=== PATIENT | male | born 1960 | race Caucasian/White ===

== ENCOUNTER 2017-11-19 15:48 | Emergency (ER) | payer OTHER, SELFPAY ==
[2017-11-19 15:49] VITALS: BP 181/90; PULSE 85; RESP 14; TEMP 36.7; O2SAT 98; BMI 25.8
--- NOTE | 2017-11-19 15:58 | XR_ITS ---
XR hand RT min 3V HISTORY: Post traumatic pain ITS.REASON: fall ORDERING PHYSICIAN: Francis Ceballos MD PATIENT AGE: 57 years COMPARISON: None FINDINGS: No fracture or dislocation. No lytic or blastic change. There is normal mineralization.. The joint spaces are well-preserved. No significant degenerative/arthritic changes. No erosive changes evident.. IMPRESSION: Negative, no acute finding
--- NOTE | 2017-11-19 16:27 | HMH.EDGENADL ---
ED Disposition Clinical Impression: Finger abrasion, Finger laceration Disposition: Home, Self-Care Condition on Discharge: Good Instructions: DI for Laceration Repair Additional Instructions: sutures out in 10 days - Critical Care Critical Care Time: No Attestation: On 11/19/17, the high probability of a clinically significant, sudden or life threatening deterioration of the following system(s) required my full and direct attention, intervention and personal management. The time I documented below is in addition to time spent performing reported procedures but includes the following listed in this critical care notation. Medical Decision Making Vital Signs: 11/19/17 15:49 11/19/17 16:49 11/19/17 17:00 Temperature 98.0 F Temperature Source Oral Pulse Rate [Right Brachial] 85 65 65 Respiratory Rate 14 18 19 Blood Pressure [Right Arm] 181/90 153/92 153/92 Blood Pressure Mean [Right Arm] 120 112 112 Blood Pressure Source [Right Arm] Automatic Cuff Automatic Cuff Automatic Cuff Blood Pressure Position [Right Arm] Sitting Sitting Sitting 02 Sat by Pulse Oximetry 98 97 97 Oxygen Delivery Method Room Air Room Air Room Air Orders (Tests/Meds): ED MEDICATIONS Discontinued Medications Generic Name Dose Route Start Last Admin Trade Name Freq PRN Reason Stop Dose Admin Lidocaine HCl 15 ml 11/19/17 16:27 Lidocaine 1% 20ml Mdv SQ 11/19/17 16:28 ONCE ONE ORDERS Category Date Time Status XR hand RT min 3V Stat Exams 11/19/17 15:58 Taken - Aníbal Inquiry Pt receiving controlled substance: No General Adult HPI - General Chief complaint: Wound/Laceration Stated complaint: [id number] LAC TO RIGHT HAND Mode of Arrival: Ambulatory Limitations: No Limitations Description of Symptoms (Recalled from ER Triage Doc. by RN): Pt fell and injured his right hand specifically on his index, middle, and ring knuckle. - History of Present Illness HPI narrative: States that he fell and hit his hand clenched in a fist and he hit his IP joints on the ground and scraped and abraded them of his right hand. Rates his last tetanus shot was less than 2 years ago. She does not think he broke his hand. some mild/moderate achy pain and bleeding at the first IP joints of the second third and fourth fingers of the right hand. no Radiation - Related Data Allergies Allergy/AdvReac Type Severity Reaction Status Date / Time No Known Allergies Allergy Verified 11/19/17 15:58 [facility] History Medical History: Denies:: Cancer, Diabetes Mellitus Type 1, Diabetes Mellitus Type 2, MRSA Amputation: No Fractures: No - *Social History Alcohol Intake: never - Psychiatric History Expresses thoughts of harming self/others: None Suicide Plan Description: No Plan ROS Obtained: Yes All systems reviewed & no additional complaints Physical Exam General Appearance: Nontoxic Head: Normocephalic, without obvious abnormality, atraumatic. Eyes: conjunctiva/corneas clear ENT: Mucous membranes moist. Neck: No jugular venous distention. Extremities: no edema Musculoskeletal: Right hand has abrasion at the second third and fourth IP joints dorsally/ The abrasion at the second IP joint becomes full-thickness for an area around 1 cm. Sensation intact capillary refill intact strength intact 5/5 Skin: No rashes or lesions to exposed skin. Neurologic: Alert. No gross focal deficits Psychiatric: Normal affect - General General appearance: alert - Respiratory Respiratory exam: Absent: respiratory distress - Cardiovascular Cardiovascular exam: Present: other (no jvd) - Neurological Exam Neurological exam: Present: alert Procedures - Laceration Laceration 1 Site: finger Side (If applicable): right Size (cm): 2 Description: linear, irregular Depth: simple, single layer Local Anesthetic: lidocaine 1% Amount of anesthesia used (mL): 2.5 Pre-repair: wound
--- NOTE | 2017-11-19 16:31 | ED_ITS ---
ED Disposition Clinical Impression: Finger abrasion, Finger laceration Disposition: Home, Self-Care Condition on Discharge: Good Instructions: DI for Laceration Repair Additional Instructions: sutures out in 10 days - Critical Care Critical Care Time: No Attestation: On 11/19/17, the high probability of a clinically significant, sudden or life threatening deterioration of the following system(s) required my full and direct attention, intervention and personal management. The time I documented below is in addition to time spent performing reported procedures but includes the following listed in this critical care notation. Medical Decision Making Vital Signs: 11/19/17 15:49 11/19/17 16:49 11/19/17 17:00 Temperature 98.0 F Temperature Source Oral Pulse Rate [Right Brachial] 85 65 65 Respiratory Rate 14 18 19 Blood Pressure [Right Arm] 181/90 153/92 153/92 Blood Pressure Mean [Right Arm] 120 112 112 Blood Pressure Source [Right Arm] Automatic Cuff Automatic Cuff Automatic Cuff Blood Pressure Position [Right Arm] Sitting Sitting Sitting 02 Sat by Pulse Oximetry 98 97 97 Oxygen Delivery Method Room Air Room Air Room Air Orders (Tests/Meds): ED MEDICATIONS Discontinued Medications Generic Name Dose Route Start Last Admin Trade Name Freq PRN Reason Stop Dose Admin Lidocaine HCl 15 ml 11/19/17 16:27 Lidocaine 1% 20ml Mdv SQ 11/19/17 16:28 ONCE ONE ORDERS Category Date Time Status XR hand RT min 3V Stat Exams 11/19/17 15:58 Taken - Aníbal Inquiry Pt receiving controlled substance: No General Adult HPI - General Chief complaint: Wound/Laceration Stated complaint: [id number] LAC TO RIGHT HAND Mode of Arrival: Ambulatory Limitations: No Limitations Description of Symptoms (Recalled from ER Triage Doc. by RN): Pt fell and injured his right hand specifically on his index, middle, and ring knuckle. - History of Present Illness HPI narrative: States that he fell and hit his hand clenched in a fist and he hit his IP joints on the ground and scraped and abraded them of his right hand. Rates his last tetanus shot was less than 2 years ago. She does not think he broke his hand. some mild/moderate achy pain and bleeding at the first IP joints of the second third and fourth fingers of the right hand. no Radiation - Related Data Allergies Allergy/AdvReac Type Severity Reaction Status Date / Time No Known Allergies Allergy Verified 11/19/17 15:58 [facility] History Medical History: Denies:: Cancer, Diabetes Mellitus Type 1, Diabetes Mellitus Type 2, MRSA Amputation: No Fractures: No - *Social History Alcohol Intake: never - Psychiatric History Expresses thoughts of harming self/others: None Suicide Plan Description: No Plan ROS Obtained: Yes All systems reviewed & no additional complaints Physical Exam General Appearance: Nontoxic Head: Normocephalic, without obvious abnormality, atraumatic. Eyes: conjunctiva/corneas clear ENT: Mucous membranes moist. Neck: No jugular venous distention. Extremities: no edema Musculoskeletal: Right hand has abrasion at the second third and fourth IP joints dorsally/ The abrasion at the second IP joint becomes full-thickness
[2017-11-19 16:49] VITALS: BP 153/92; PULSE 65; RESP 18; O2SAT 97
[2017-11-19 17:00] VITALS: BP 153/92; PULSE 65; RESP 19; O2SAT 97
[2017-11-19 18:00] VITALS: BP 190/74; PULSE 85; RESP 16; TEMP 37; O2SAT 98
== END 2017-11-19 18:01 | disposition home or self-care (01) ==
PROVIDERS: Emergency Provider Emergency Medicine
DX: S61.219A Laceration without foreign body of unspecified finger without damage to nail, initial encounter (principal); W20.8XXA Other cause of strike by thrown, projected or falling object, initial encounter
CPT/HCPCS: 12001; 73130; 99283